=== PATIENT | female | born 1980 | race Caucasian/White ===

== ENCOUNTER 2016-07-17 15:51 | Inpatient (IN) | payer MEDICAID ==
[~2016-07-17] VITALS: Ht 157.5 cm; Wt 76.6 kg
[2016-07-17] MEDS ORDERED: METHYLERGONOVINE 0.2 MG INJ IM PRN (17:30)
[2016-07-17] MEDS ORDERED: LACTATED RINGER'S 1,000 ML IV PRN (17:30)
[2016-07-17] MEDS ORDERED: CARBOPROST 250 MCG INJ IM PRN (17:30)
[2016-07-17] MEDS ORDERED: OXYTOCIN 30 UNITS/LR 500 ML IV PRN (17:30)
[2016-07-17] MEDS ORDERED: OXYTOCIN 30 UNITS/LR 500 ML IV SCH (17:30)
[2016-07-17] MEDS ORDERED: MISOPROSTOL 200 MCG TAB PR PRN (17:30)
[2016-07-17] MEDS ORDERED: LIDOCAINE 1% (MPF) 30 ML INJ INJ PRN (17:30)
[2016-07-17 17:50] LABS: ADD SCAN DIFF NO
[2016-07-17 17:54] LABS: BASOPHILS % 0.3 % (0.0-2.0); EOSINOPHILS % 0.4 % (0.0-7.0); HEMATOCRIT 34.3 % (37.0-47.0); HEMOGLOBIN 11.4 g/dl (12.0-16.0); LYMPHOCYTES # 2.3 10^3/ul (0.8-2.9); LYMPHOCYTES % 22.5 % (15.0-51.0); MEAN CORPUSCULAR HEMOGLOBIN 30.4 pg (29.0-33.0); MEAN CORPUSCULAR HGB CONC 33.2 g/dl (32.0-37.0); MEAN CORPUSCULAR VOLUME 91.5 fl (82.0-101.0); MEAN PLATELET VOLUME 12.4 fl (7.4-10.4); MONOCYTE # 0.5 10^3/ul (0.3-0.9); MONOCYTES % 4.8 % (0.0-11.0); NEUTROPHIL # 7.2 10^3/ul (1.6-7.5); NEUTROPHILS % 71.7 % (39.0-77.0); PLATELET COUNT 209 10^3/UL (140-415); RED BLOOD COUNT 3.75 10^6/ul (4.20-5.40); RED CELL DISTRIBUTION WIDTH 13.7 % (11.5-14.5)
[2016-07-17 18:14] LABS: INR 0.92; PROTIME 12.4 Sec (12.2-14.2)
[2016-07-17 18:15] LABS: PARTIAL THROMBOPLASTIN TIME 27.2 Sec (25.0-35.0)
[2016-07-17] MEDS: LACTATED RINGER'S 1,000 ML IV SCH (19:17)
[2016-07-17] MEDS: OXYTOCIN 30 UNITS/LR 500 ML IV SCH (19:18)
--- NOTE | 2016-07-17 20:52 | RADRPT ---
PROCEDURE: US OB. CLINICAL INDICATION: , labor induction. TECHNIQUE: Multiple sonographic images of the pelvis were obtained. Transabdominal imaging only w as performed. The images were reviewed on a PACS workstation. COMPARISON: No prior studies are available for comparison. FINDINGS: There is a single viable intrauterine gestation. Cardiac activity is present with 137 beats per minute. There is a cephalic presentation. Measurements were made in order to determine age. The results are as follows: BPD = 9.72 cm HC = 34.56 cm AC = 36.84 cm FL = 7.77 cm Estimated gestational age of approximately 40 weeks 0 days. The estimated date of delivery is 07/17/2016. The EFW = 4057 g. EFW percentile: 87% The placenta is posterior, grade 1. There is no evidence for an abruption or placenta previa. There is an adequate amount of amniotic fluid. IMPRESSION: 1. Single viable intrauterine gestation of approximately 40 weeks 0 days, based on ultrasound measu rements. The estimated date of delivery is 07/17/2016. 2. EFW percentile: 87%. RPTAT: HTAR .Lance Porter MD, Date Time Electronically viewed and signed by .Lance Porter MD, on 07/17/2016 20:52 .R/
[2016-07-17] MEDS: BUTORPHANOL 2 MG INJ IV PRN (21:15)
[2016-07-18] MEDS: LACTATED RINGER'S 1,000 ML IV SCH ×2 (02:09→09:21)
[2016-07-18] MEDS: BUTORPHANOL 2 MG INJ IV PRN (04:43)
--- NOTE | 2016-07-18 08:01 | LDN ---
Date/Time of Note Date/Time of Note DATE: 07/18/16 TIME: 07:59 Delivery Summary Weeks of Gestation 39+ Placenta Delivered: Spontaneously Meconium: none Episiotomy: No Perineal laceration: 2 Anesthesia type: Local Estimated blood loss: 200 Sponge & Needle done & correct: Yes All needle counts correct: Yes Any foreign bodies felt in the: No Problems: Delivery Information Sex Sex: male Apgars 1 Minute: 8 5 Minute: 9 Suctioning Nose & mouth suctioned at lali: Yes Delee suction performed: Yes Umbilical Cord Umbilical cord with: 3 Vessels Cord presentations: nuchal cord Nuchal cord present X: 1 Cord Blood was obtained: No Mother & Baby Disposition Disposition Mom & Baby to Maternity; Good: Yes Baby to NICU: No LO DEL TORO M.D. Jul 18, 2016 08:01
--- NOTE | 2016-07-18 08:04 | HP ---
Date/Time of Note Date/Time of Note DATE: 07/18/16 TIME: 08:02 OB - History Hx of Present Free Text/Dictation 39+wks GA Care: Good Care Ultrasounds: Normal mid trimester US Obstetrical Complications: None, Growth Restriction Medical Complications: None Past Family/Social History * Past Medical, Surgical, Family and Obstetric Histories reviewed from chart. OB Admission Exam Physical Exam Abdomen: WNL Cervical Dilatation: 3cm Effacement: 75% Station: -1 Membranes: Intact Amniotic Fluid: Clear Heart Rate: 140's Accelerations: Accelerations Present Decelerations: No Decelerations Varibility: Moderate Last 72 hours Lab Results CBC & BMP 07/17/16 17:10 OB Assessment/Plan Reason for admission: observation Plan: Expectant Management Other plan: Anticiapted LO PABLO M.D. Jul 18, 2016 08:04
[2016-07-18] MEDS: OXYTOCIN 30 UNITS/LR 500 ML IV SCH (08:38)
[2016-07-18 10:10] VITALS: BP 127/69; PULSE 78; RESP 18
[2016-07-18] MEDS: LACTATED RINGER'S 1,000 ML IV* SCH ×2 (10:27→17:46)
[2016-07-18] MEDS ORDERED: CARBOPROST 250 MCG INJ IM PRN (10:30)
[2016-07-18] MEDS ORDERED: MISOPROSTOL 200 MCG TAB PR PRN (10:30)
[2016-07-18] MEDS ORDERED: METHYLERGONOVINE 0.2 MG INJ IM PRN (10:30)
[2016-07-18] MEDS ORDERED: BENZOCAINE 20% 56 ML SPRAY TOP PRN (10:30)
[2016-07-18] MEDS ORDERED: LANOLIN 7 GM TUBE TOP PRN (10:30)
[2016-07-18] MEDS ORDERED: OXYTOCIN 30 UNITS/LR 500 ML IV PRN (10:30)
[2016-07-18] MEDS ORDERED: ZOLPIDEM 5 MG TAB PO PRN (10:30)
[2016-07-18] MEDS ORDERED: SENNA/DOCUSATE NA (8.6MG/50MG) TAB PO PRN (10:30)
[2016-07-18] MEDS: WITCH HAZEL/GLYCERIN PAD PR PRN ×2 (11:18→21:56)
[2016-07-18] MEDS: OXYCODONE/ASPIRIN (4.88/325) TAB PO PRN (11:24)
[2016-07-18] MEDS: IBUPROFEN 600 MG TAB PO SCH ×3 (12:00→23:55)
[2016-07-18 16:00] VITALS: BP 131/81; PULSE 65; RESP 17
[2016-07-18 20:00] VITALS: BP 116/69; PULSE 70; RESP 18
[2016-07-18] MEDS: SENNA/DOCUSATE NA (8.6MG/50MG) TAB PO SCH (20:57)
[2016-07-19] MEDS: LACTATED RINGER'S 1,000 ML IV* SCH ×3 (02:27→18:27)
[2016-07-19 03:32] VITALS: BP 127/80; PULSE 71; RESP 18
[2016-07-19] MEDS: IBUPROFEN 600 MG TAB PO SCH ×4 (06:00→23:55)
[2016-07-19 07:51] VITALS: BP 118/62; PULSE 71; RESP 20
[2016-07-19 07:56] LABS: ADD SCAN DIFF NO
[2016-07-19 08:03] LABS: BASOPHILS % 0.2 % (0.0-2.0); EOSINOPHILS % 0.3 % (0.0-7.0); HEMATOCRIT 33.8 % (37.0-47.0); HEMOGLOBIN 11.1 g/dl (12.0-16.0); LYMPHOCYTES # 3.5 10^3/ul (0.8-2.9); LYMPHOCYTES % 23.4 % (15.0-51.0); MEAN CORPUSCULAR HEMOGLOBIN 30.2 pg (29.0-33.0); MEAN CORPUSCULAR HGB CONC 32.8 g/dl (32.0-37.0); MEAN CORPUSCULAR VOLUME 92.1 fl (82.0-101.0); MEAN PLATELET VOLUME 12.8 fl (7.4-10.4); MONOCYTE # 0.9 10^3/ul (0.3-0.9); MONOCYTES % 5.9 % (0.0-11.0); NEUTROPHIL # 10.3 10^3/ul (1.6-7.5); NEUTROPHILS % 69.8 % (39.0-77.0); PLATELET COUNT 209 10^3/UL (140-415); RED BLOOD COUNT 3.67 10^6/ul (4.20-5.40); RED CELL DISTRIBUTION WIDTH 13.5 % (11.5-14.5); WHITE BLOOD COUNT 14.8 10^3/ul (4.8-10.8)
[2016-07-19] MEDS: SENNA/DOCUSATE NA (8.6MG/50MG) TAB PO SCH ×2 (09:58→21:08)
[2016-07-19 13:00] VITALS: BP 99/63; PULSE 69; RESP 18
--- NOTE | 2016-07-19 13:11 | QN ---
Documentation Comment PPD#1 is stable Afebrile tolerates diet No VB +BM +voids VS stable Gen NAD Abd soft NT ND Genitalia No blood at perinium --->discharge plan tomorrow LO DEL TORO M.D. Jul 19, 2016 13:11
--- NOTE | 2016-07-19 13:12 | DS ---
Date/Time of Note Date/Time of Note DATE: 07/19/16 TIME: 13:11 Discharge Summary Admission/Discharge Info Admit Date/Time Jul 17, 2016 at 16:15 Discharge Date/Time Final Diagnosis Labor Full term Patient Condition: Stable Procedures Vaginal delivery Hospital Course Uneventful Primary Care Provider Care Physician No Primary Pending Labs Laboratory Tests Test 07/19/16 06:50 White Blood Count 14.810^3/ul (4.8-10.8) Red Blood Count 3.6710^6/ul (4.20-5.40) Hemoglobin 11.1g/dl (12.0-16.0) Hematocrit 33.8% (37.0-47.0) Mean Corpuscular Volume 92.1fl (82.0-101.0) Mean Corpuscular Hemoglobin 30.2pg (29.0-33.0) Mean Corpuscular Hemoglobin Concent 32.8g/dl (32.0-37.0) Red Cell Distribution Width 13.5% (11.5-14.5) Platelet Count 62381^3/UL (140-415) Mean Platelet Volume 12.8fl (7.4-10.4) Neutrophils % 69.8% (39.0-77.0) Lymphocytes % 23.4% (15.0-51.0) Monocytes % 5.9% (0.0-11.0) Eosinophils % 0.3% (0.0-7.0) Basophils % 0.2% (0.0-2.0) Nucleated Red Blood Cells % 0.0/100WBC (0.0-0.0) Neutrophils # 10.310^3/ul (1.6-7.5) Lymphocytes # 3.510^3/ul (0.8-2.9) Monocytes # 0.910^3/ul (0.3-0.9) Eosinophils # 0.010^3/ul (0.0-0.5) Basophils # 0.010^3/ul (0.0-0.1) Nucleated Red Blood Cells # 0.010^3/ul (0.0-0.0) LO DEL TORO M.D. Jul 19, 2016 13:12
[2016-07-19 18:15] VITALS: BP 106/69; RESP 18
[2016-07-19 19:50] VITALS: BP 132/66; PULSE 75; RESP 18
[2016-07-19] MEDS: WITCH HAZEL/GLYCERIN PAD PR PRN (21:32)
[2016-07-20] MEDS: LACTATED RINGER'S 1,000 ML IV* SCH (02:27)
[2016-07-20 04:20] VITALS: BP 126/66; PULSE 66; RESP 18
[2016-07-20] MEDS: IBUPROFEN 600 MG TAB PO SCH ×2 (05:56→12:23)
[2016-07-20 08:37] VITALS: BP 138/72; PULSE 56; RESP 20
[2016-07-20] MEDS ORDERED: DIPHTH/TET/ACEL PERTUSS (ADULT) 0.5 ML VIAL IM* ONE (09:00)
[2016-07-20] MEDS: SENNA/DOCUSATE NA (8.6MG/50MG) TAB PO SCH (09:22)
[2016-07-20] MEDS: OXYCODONE/ASPIRIN (4.88/325) TAB PO PRN (09:23)
== END 2016-07-20 13:35 | disposition home or self-care (01) | DRG 775 ==
LOC: L-D 15:51 → UNDOADMIN 15:51 → L-D 16:15 → PP1 07-18 10:15 → EDSTATUS 07-21 15:49
PROVIDERS: ADMIT Obstetrics & Gynecology; ATTEND Obstetrics & Gynecology
PROC: 10E0XZZ Delivery of Products of Conception, External Approach (ICD-10-PCS; principal; 2016-07-18)
PROC: 0KQM0ZZ Repair Perineum Muscle, Open Approach (ICD-10-PCS; 2016-07-18)
DX: O69.81X0 Labor and delivery complicated by cord around neck, without compression, not applicable or unspecified (principal); O70.1 Second degree perineal laceration during delivery; Z3A.39 39 weeks gestation of pregnancy; Z37.0 Single live birth
CPT/HCPCS: 76815; 85025; 85610; 85730; 86592; 86900; 86901; 87340; 90715; 99464; J0595; J2590; J7120